=== PATIENT | female | born 1975 | race Two or more races ===

== ENCOUNTER → 2024-07-10 | Outpatient (CLI) | payer MEDICAID, SELFPAY ==
--- NOTE | 2024-07-10 09:00 | XR_ITS ---
Examination: MRI cervical spine without intravenous contrast Date and time of exam: July 10, 2024 0916 hrs. Indications: Left-sided neck pain radiating down the left arm numbness and paresthesias in the arm one year after lifting injury Technique: Multiple axial and sagittal sections of the cervical spine to been obtained. T2 weighted sagittal sections, TR 3, 270, TE 117 T1-weighted sagittal sections, TR 500, TE 11 T1-weighted axial sections, TR 607, TE 12, axial sections TR 18, TE 27 and T2 weighted transverse sections, TR 3920, TE 122. Findings: Adequate alignment cervical vertebral bodies No cervical fracture Mild disc narrowing C4-C5 Diffuse cervical disc desiccation Intact odontoid No localized enlargement cervical cord C2-C3 no disc protrusion C3-C4 4 mm central cervical disc protrusion C4-C5 3 mm left paracentral subarticular osteophyte disc complex moderate left neural foraminal stenosis C5-C6 no disc protrusion C6-C7 no disc protrusion C7-T1 no disc protrusion Impression: C3-C4 4 mm central cervical disc protrusion C4-C5 3 mm left paracentral subarticular osteophyte disc complex, moderate left neural foraminal stenosis
== END | disposition home or self-care (01) ==
LOC: SMRI 08:43
PROVIDERS: PCP Physician Assistant; Referring Provider Physician Assistant; Visit Provider Physician Assistant
DX: M50.21 Other cervical disc displacement, high cervical region (principal); M48.02 Spinal stenosis, cervical region; M25.78 Osteophyte, vertebrae
CPT/HCPCS: 72141